=== PATIENT | female | born 1995 | race African-American/Black ===

== ENCOUNTER 2016-09-20 01:31 | Emergency (ER) | payer SELFPAY ==
[~2016-09-20] VITALS: Ht 175.3 cm; Wt 82.7 kg
[~2016-09-20 01:31] MED LIST: AMOXICILLIN 25250 MG PO; AMOXICILLIN 8751 TAB PO; ANTIBIOTIC; ANTIDEPRESSANT; CEFTIN 250250 MG/TAB PO; CLARITIN 1010 MG/TAB PO; DESYREL 50MG50 MG PO; DIFLUCAN150 MG PO; FLAGYL500 MG PO; FLEXERIL 1010 MG/TAB PO; FLONASEALLERGY NS; MOTRIN 800800 MG/TAB PO; NAPROSYN500 MG PO; NORCO 325 MG-51 TAB PO; PYRIDIUM 100MG100 MG PO; UNABLE TO ASSESS; VALTREX1 GM PO; ZOFRAN ODT4 MG PO; ZOLOFT 50MG50 MG PO; ZOVIRAX 200MG200 MG PO; ZYPREXA 5MG5 MG PO; [UNRECOGNIZED DRUG - REMARK]
[2016-09-20 01:36] VITALS: BP 124/79; TEMP 97.5
[2016-09-20 02:52] LABS: BASO % 0.7 % (0.0-2.0); EOS # 0.1 (0.0-0.7); EOS % 2.4 % (0-4.0); GRAN # 3.4 (1.4-6.5); GRAN % 61.3 % (42.2-75.2); HEMATOCRIT 39.7 % (37.0-47.0); HEMOGLOBIN 13.1 g/dl (12.5-16.0); LYMPH # 1.4 (1.2-3.4); LYMPH % 26.1 % (20.0-51.0); MEAN CELL VOLUME 92 fl (80.0-100.0); MEAN CORPUSCULAR HEMOGLOBIN 31 pg (27.0-31.0); MEAN CORPUSCULAR HGB CONC 33 g/dl (33.0-37.0); MEAN PLATELET VOLUME 11.3 fl (7.4-10.4); MONO # 0.5 (0.1-0.6); MONO % 9.3 % (1.7-9.3); PLATELET COUNT 226 K/mm3 (130-400); REDCELL DISTRIBUTION WIDTH-CV 13.2 % (11.5-14.5); WHITE BLOOD COUNT 5.5 K/mm3 (4.8-10.8)
[2016-09-20 03:59] LABS: PH 5 (5-8); URINE APPEARANCE Hazy; URINE BACTERIA None Seen /hpf; URINE BILIRUBIN Positive (NEGATIVE); URINE BLOOD 3+ (NEGATIVE); URINE COLOR Amber; URINE GLUCOSE Negative (NEGATIVE); URINE KETONE Negative (NEGATIVE)
[2016-09-20 04:00] LABS: ADJUSTED CALCIUM 8.6 mg/dL (8.4-10.2); ALANINE AMINOTRANSFERASE 20 U/L (9-52); ALKALINE PHOSPHATASE 47 U/L (50-136); ANION GAP 8 mmol/L (7-16); BILIRUBIN,TOTAL 0.5 mg/dL (0.0-1.0); BLOOD UREA NITROGEN 6 mg/dL (7-17); CALCIUM 8.6 mg/dL (8.4-10.2); CARBON DIOXIDE 28 mmol/L (22-30); CHLORIDE 107 mmol/L (98-107); CREATININE, serum 0.67 mg/dL (0.52-1.25); GLUCOSE 90 mg/dL (74-106); POTASSIUM 4.5 mmol/L (3.4-5.0); SODIUM 143 mmol/L (137-145); TOTAL PROTEIN 7.4 gm/dL (6.4-8.2)
[2016-09-20 04:02] LABS: URINE RBC 20-50 /hpf; URINE WBC 0-2 /hpf
[2016-09-20 04:03] LABS: C-REACTIVE PROTEIN < 0.5 mg/dL (0.0-0.9)
[2016-09-20] MEDS ORDERED: ZOFRAN 4MG T4 MG/TAB PO (04:10)
[2016-09-20 04:24] VITALS: PULSE 77
== END 2016-09-20 04:24 | disposition home or self-care (01) ==
LOC: COL.ER 01:31
PROVIDERS: Emergency Medicine
DX: R11.10 Vomiting, unspecified (principal); R19.7 Diarrhea, unspecified; J06.9 Acute upper respiratory infection, unspecified; B34.9 Viral infection, unspecified; F17.210 Nicotine dependence, cigarettes, uncomplicated
CPT/HCPCS: J2405; J7030

== ENCOUNTER 2016-10-28 18:18 | Emergency (ER) | payer SELFPAY ==
[~2016-10-28] VITALS: Ht 175.3 cm; Wt 83.2 kg
[~2016-10-28 18:18] MED LIST changes: +ZOFRAN 4MG T4 MG/TAB PO
[2016-10-28 18:22] VITALS: TEMP 98.8
[2016-10-28 19:36] LABS: BASO # 0.1 (0.0-0.2); BASO % 0.8 % (0.0-2.0); EOS # 0.1 (0.0-0.7); EOS % 1.4 % (0-4.0); GRAN # 5.4 (1.4-6.5); GRAN % 67.1 % (42.2-75.2); HEMATOCRIT 37.1 % (37.0-47.0); LYMPH % 25.1 % (20.0-51.0); MEAN CELL VOLUME 92 fl (80.0-100.0); MEAN CORPUSCULAR HGB CONC 32 g/dl (33.0-37.0); MEAN PLATELET VOLUME 10.6 fl (7.4-10.4); MONO # 0.4 (0.1-0.6); MONO % 5.3 % (1.7-9.3); PLATELET COUNT 277 K/mm3 (130-400); RED BLOOD COUNT 4.04 M/mm3 (4.10-5.30); REDCELL DISTRIBUTION WIDTH-CV 12.5 % (11.5-14.5)
[2016-10-28 19:41] LABS: PH 5 (5-8); URINE APPEARANCE Hazy; URINE BACTERIA Rare /hpf; URINE BILIRUBIN Negative (NEGATIVE); URINE BLOOD Negative (NEGATIVE); URINE COLOR Yellow; URINE GLUCOSE Negative (NEGATIVE); URINE KETONE Negative (NEGATIVE); URINE RBC 0-2 /hpf; URINE WBC 0-2 /hpf
[2016-10-28 19:47] LABS: ALBUMIN 4.2 gm/dL (3.5-5.0); BILIRUBIN,TOTAL 0.6 mg/dL (0.0-1.0); CALCIUM 9.2 mg/dL (8.4-10.2); CREATININE, serum 0.7 mg/dL (0.52-1.25); POTASSIUM 3.8 mmol/L (3.4-5.0); TOTAL PROTEIN 7.2 gm/dL (6.4-8.2)
[2016-10-28 19:48] LABS: HEMOGLOBIN 11.9 g/dl (12.5-16.0); MEAN CORPUSCULAR HEMOGLOBIN 29 pg (27.0-31.0)
[2016-10-28 20:21] VITALS: BP 100/65; PULSE 80
[2016-10-28] MEDS ORDERED: ZOFRAN8 MG PO (20:22)
== END 2016-10-28 20:35 | disposition home or self-care (01) ==
LOC: COL.ER 18:18
PROVIDERS: Emergency Medicine
DX: R10.11 Right upper quadrant pain (principal); R10.31 Right lower quadrant pain; E86.9 Volume depletion, unspecified; R19.7 Diarrhea, unspecified
CPT/HCPCS: J1885; J2405; J7030

== ENCOUNTER 2016-12-18 04:51 | Emergency (ER) | payer SELFPAY ==
[~2016-12-18] VITALS: Ht 177.8 cm; Wt 82.7 kg
[~2016-12-18 04:51] MED LIST changes: +ZOFRAN8 MG PO
[2016-12-18 04:55] VITALS: BP 106/69; TEMP 98.6
[2016-12-18 05:47] VITALS: PULSE 80
== END 2016-12-18 05:48 | disposition home or self-care (01) ==
LOC: COL.ER 04:51
DX: S61.412A Laceration without foreign body of left hand, initial encounter (principal); F17.210 Nicotine dependence, cigarettes, uncomplicated; W25.XXXA Contact with sharp glass, initial encounter

== ENCOUNTER 2017-03-04 16:51 | Emergency (ER) | payer MEDICAID ==
[~2017-03-04] VITALS: Ht 175.3 cm; Wt 81.8 kg
[2017-03-04 16:54] VITALS: TEMP 98.2
[2017-03-04] MEDS ORDERED: ANTIDEPRESSANT (16:57)
[2017-03-04] MEDS ORDERED: ANXIETY (16:58)
[2017-03-04 17:42] LABS: BASO # 0.1 (0.0-0.2); BASO % 0.5 % (0.0-2.0); EOS % 0.3 % (0-4.0); GRAN % 73.3 % (42.2-75.2); HEMATOCRIT 40.5 % (37.0-47.0); HEMOGLOBIN 13.5 g/dl (12.5-16.0); LYMPH % 21.2 % (20.0-51.0); MEAN CELL VOLUME 93 fl (80.0-100.0); MEAN CORPUSCULAR HEMOGLOBIN 31 pg (27.0-31.0); MEAN CORPUSCULAR HGB CONC 33 g/dl (33.0-37.0); MEAN PLATELET VOLUME 11.2 fl (7.4-10.4); MONO # 0.4 (0.1-0.6); MONO % 4.5 % (1.7-9.3); PLATELET COUNT 228 K/mm3 (130-400); RED BLOOD COUNT 4.38 M/mm3 (4.10-5.30); WHITE BLOOD COUNT 9.5 K/mm3 (4.8-10.8)
[2017-03-04 17:54] LABS: ADJUSTED CALCIUM 9.1 mg/dL (8.4-10.2); ALANINE AMINOTRANSFERASE 16 U/L (9-52); ALBUMIN 4.6 gm/dL (3.5-5.0); ALKALINE PHOSPHATASE 48 U/L (50-136); ANION GAP 10 mmol/L (7-16); BILIRUBIN,TOTAL 0.8 mg/dL (0.0-1.0); BLOOD UREA NITROGEN 7 mg/dL (7-17); CALCIUM 9.6 mg/dL (8.4-10.2); CARBON DIOXIDE 24 mmol/L (22-30); CHLORIDE 105 mmol/L (98-107); CREATININE, serum 0.72 mg/dL (0.52-1.25); GLUCOSE 81 mg/dL (74-106); POTASSIUM 3.9 mmol/L (3.4-5.0); SODIUM 138 mmol/L (137-145)
[2017-03-04 17:59] LABS: ACETAMINOPHEN < 10 ug/mL (10-30); SALICYLATE < 1.0 mg/dL
[2017-03-04 18:10] LABS: AMPHETAMINE URINE NEGATIVE; BARBITURATES URINE NEGATIVE; BENZODIAZEPINES URINE NEGATIVE; BUPRENORPHINE URINE NEGATIVE; METHADONE URINE NEGATIVE; OPIATES URINE NEGATIVE; OXYCODONE URINE NEGATIVE; PHENCYCLIDINE URINE NEGATIVE; PROPOXYPHENE URINE NEGATIVE; THC CANNABINOIDS URINE NEGATIVE
[2017-03-04] MEDS ORDERED: [UNRECOGNIZED DRUG - REMARK] (19:12)
[2017-03-04 20:52] VITALS: BP 107/62; PULSE 78
== END 2017-03-04 20:53 | disposition home or self-care (01) ==
LOC: COL.ER 16:51
PROVIDERS: Emergency Medicine
DX: R45.851 Suicidal ideations (principal); F41.9 Anxiety disorder, unspecified; F32.9 Major depressive disorder, single episode, unspecified; Z91.5 Personal history of self-harm

== ENCOUNTER 2017-03-22 16:03 | Emergency (ER) | payer SELFPAY ==
[~2017-03-22] VITALS: Ht 175.3 cm; Wt 82.7 kg
[~2017-03-22 16:03] MED LIST changes: +ANXIETY; +[UNRECOGNIZED DRUG - REMARK]
[2017-03-22 16:12] VITALS: BP 114/72; TEMP 99.1
[2017-03-22] MEDS ORDERED: ZYPREXA10 MG PO (16:42)
[2017-03-22 17:39] LABS: PH 5 (5-8); URINE APPEARANCE Hazy; URINE BACTERIA None Seen /hpf; URINE BILIRUBIN Negative (NEGATIVE); URINE BLOOD 3+ (NEGATIVE); URINE COLOR Amber; URINE GLUCOSE Negative (NEGATIVE); URINE KETONE Trace (NEGATIVE); URINE WBC 0-2 /hpf
[2017-03-22 18:15] LABS: BASO # 0.1 (0.0-0.2); BASO % 0.9 % (0.0-2.0); EOS # 0.1 (0.0-0.7); EOS % 1.5 % (0-4.0); GRAN # 5.5 (1.4-6.5); GRAN % 67.9 % (42.2-75.2); LYMPH % 24.4 % (20.0-51.0); MEAN CELL VOLUME 93 fl (80.0-100.0); MEAN CORPUSCULAR HGB CONC 33 g/dl (33.0-37.0); MEAN PLATELET VOLUME 10.4 fl (7.4-10.4); MONO # 0.4 (0.1-0.6); MONO % 5.1 % (1.7-9.3); PLATELET COUNT 213 K/mm3 (130-400); RED BLOOD COUNT 3.79 M/mm3 (4.10-5.30); REDCELL DISTRIBUTION WIDTH-CV 13.2 % (11.5-14.5); WHITE BLOOD COUNT 8.1 K/mm3 (4.8-10.8)
[2017-03-22 18:16] LABS: HEMATOCRIT 35.3 % (37.0-47.0); HEMOGLOBIN 11.6 g/dl (12.5-16.0); MEAN CORPUSCULAR HEMOGLOBIN 31 pg (27.0-31.0)
[2017-03-22 18:28] LABS: ADJUSTED CALCIUM 9.1 mg/dL (8.4-10.2); ALANINE AMINOTRANSFERASE 18 U/L (9-52); ALBUMIN 4.4 gm/dL (3.5-5.0); ALKALINE PHOSPHATASE 40 U/L (50-136); ANION GAP 10 mmol/L (7-16); BILIRUBIN,TOTAL 0.7 mg/dL (0.0-1.0); BLOOD UREA NITROGEN 11 mg/dL (7-17); CALCIUM 9.4 mg/dL (8.4-10.2); CARBON DIOXIDE 24 mmol/L (22-30); CHLORIDE 104 mmol/L (98-107); CREATININE, serum 0.65 mg/dL (0.52-1.25); GLUCOSE 75 mg/dL (74-106); POTASSIUM 3.9 mmol/L (3.4-5.0); SODIUM 138 mmol/L (137-145); TOTAL PROTEIN 7.5 gm/dL (6.4-8.2)
[2017-03-22 18:30] LABS: C-REACTIVE PROTEIN < 0.5 mg/dL (0.0-0.9)
[2017-03-22 20:32] LABS: CHLAMYDIA/TRACH by PCR Female NOT DETECTED; NEISSERIA GON by PCR Female NOT DETECTED
[2017-03-22 20:49] VITALS: PULSE 81
== END 2017-03-22 20:50 | disposition home or self-care (01) ==
LOC: COL.ER 16:03
PROVIDERS: Nurse Practitioner
DX: O20.0 Threatened abortion (principal); O26.891 Other specified pregnancy related conditions, first trimester; R10.2 Pelvic and perineal pain; O99.341 Other mental disorders complicating pregnancy, first trimester; F41.9 Anxiety disorder, unspecified; O99.331 Smoking (tobacco) complicating pregnancy, first trimester; F17.210 Nicotine dependence, cigarettes, uncomplicated; Z3A.00 Weeks of gestation of pregnancy not specified

== ENCOUNTER 2017-03-29 13:54 | Emergency (ER) | payer SELFPAY ==
[~2017-03-29] VITALS: Ht 175.3 cm; Wt 83.6 kg
[~2017-03-29 13:54] MED LIST changes: +ZYPREXA10 MG PO
[2017-03-29 16:43] LABS: BASO # 0.1 (0.0-0.2); BASO % 0.9 % (0.0-2.0); EOS # 0.1 (0.0-0.7); EOS % 1.3 % (0-4.0); GRAN # 5.5 (1.4-6.5); GRAN % 71.3 % (42.2-75.2); LYMPH # 1.6 (1.2-3.4); LYMPH % 20.7 % (20.0-51.0); MEAN CELL VOLUME 94 fl (80.0-100.0); MEAN CORPUSCULAR HGB CONC 33 g/dl (33.0-37.0); MEAN PLATELET VOLUME 11.6 fl (7.4-10.4); MONO # 0.4 (0.1-0.6); MONO % 5.7 % (1.7-9.3); PLATELET COUNT 214 K/mm3 (130-400); RED BLOOD COUNT 3.77 M/mm3 (4.10-5.30); REDCELL DISTRIBUTION WIDTH-CV 13.2 % (11.5-14.5); WHITE BLOOD COUNT 7.7 K/mm3 (4.8-10.8)
[2017-03-29 16:53] LABS: HEMATOCRIT 35.5 % (37.0-47.0); HEMOGLOBIN 11.6 g/dl (12.5-16.0); MEAN CORPUSCULAR HEMOGLOBIN 31 pg (27.0-31.0)
[2017-03-29] MEDS ORDERED: NORCO 325 MG-51 TAB PO (18:45)
[2017-03-29 19:14] VITALS: BP 114/66; PULSE 68; TEMP 97
== END 2017-03-29 19:05 | disposition home or self-care (01) ==
LOC: COL.ER 13:54
PROVIDERS: Emergency Medicine
DX: O26.899 Other specified pregnancy related conditions, unspecified trimester (principal); R10.2 Pelvic and perineal pain
CPT/HCPCS: J1170

== ENCOUNTER 2017-05-23 08:11 | Emergency (ER) | payer MEDICAID ==
[~2017-05-23] VITALS: Ht 175.3 cm; Wt 83.2 kg
[2017-05-23 08:20] VITALS: TEMP 97.8
[2017-05-23 09:16] LABS: BASO % 0.6 % (0.0-2.0); EOS # 0.1 (0.0-0.7); EOS % 1.4 % (0-4.0); GRAN # 4.6 (1.4-6.5); GRAN % 65.8 % (42.2-75.2); HEMATOCRIT 37.5 % (37.0-47.0); LYMPH # 1.7 (1.2-3.4); LYMPH % 23.7 % (20.0-51.0); MEAN CELL VOLUME 96 fl (80.0-100.0); MEAN CORPUSCULAR HEMOGLOBIN 31 pg (27.0-31.0); MEAN CORPUSCULAR HGB CONC 32 g/dl (33.0-37.0); MEAN PLATELET VOLUME 10.1 fl (7.4-10.4); MONO # 0.6 (0.1-0.6); MONO % 8.4 % (1.7-9.3); PLATELET COUNT 202 K/mm3 (130-400); RED BLOOD COUNT 3.92 M/mm3 (4.10-5.30)
[2017-05-23 09:21] LABS: STREP SCREEN NEGATIVE
[2017-05-23 09:29] LABS: INFLUENZA A NEGATIVE; INFLUENZA B NEGATIVE
[2017-05-23] MEDS ORDERED: TUSS PO (10:13)
[2017-05-23 11:13] VITALS: BP 119/75; PULSE 88
== END 2017-05-23 10:28 | disposition home or self-care (01) ==
LOC: COL.ER 08:11
PROVIDERS: Nurse Practitioner
DX: B34.9 Viral infection, unspecified (principal); F41.9 Anxiety disorder, unspecified; F32.9 Major depressive disorder, single episode, unspecified; F60.3 Borderline personality disorder; F17.210 Nicotine dependence, cigarettes, uncomplicated

== ENCOUNTER 2017-08-16 09:50 | Emergency (ER) | payer MEDICAID ==
[~2017-08-16] VITALS: Ht 175.3 cm; Wt 83.2 kg
[~2017-08-16 09:50] MED LIST changes: +TUSS PO
[2017-08-16 09:55] VITALS: BP 117/73
[2017-08-16 10:41] LABS: INFLUENZA A NEGATIVE; INFLUENZA B NEGATIVE
[2017-08-16 12:02] VITALS: PULSE 100; TEMP 100.1
== END 2017-08-16 12:00 | disposition home or self-care (01) ==
LOC: COL.ER 09:50
PROVIDERS: Physician Assistant
DX: B34.9 Viral infection, unspecified (principal); G47.9 Sleep disorder, unspecified

== ENCOUNTER 2017-09-12 12:47 | Emergency (ER) | payer MEDICAID ==
[~2017-09-12] VITALS: Ht 175.3 cm; Wt 81.8 kg
[2017-09-12 13:02] VITALS: BP 123/74; TEMP 98.1
[2017-09-12] MEDS ORDERED: DESYREL 50MG50 MG (13:05)
[2017-09-12] MEDS ORDERED: PROZAC 10MG10 MG (13:05)
[2017-09-12] MEDS ORDERED: ZYPREXA20 MG PO (13:06)
[2017-09-12 15:17] VITALS: PULSE 72
== END 2017-09-12 15:18 | disposition home or self-care (01) ==
LOC: COL.ER 12:47
DX: G43.909 Migraine, unspecified, not intractable, without status migrainosus (principal)
CPT/HCPCS: J1200; J1885

== ENCOUNTER 2017-09-27 20:13 | Emergency (ER) | payer MEDICAID ==
[~2017-09-27] VITALS: Ht 175.3 cm; Wt 81.8 kg
[~2017-09-27 20:13] MED LIST changes: +DESYREL 50MG50 MG; +PROZAC 10MG10 MG; +ZYPREXA20 MG PO
[2017-09-27 20:21] VITALS: BP 114/67; TEMP 98.6
[2017-09-27] MEDS ORDERED: DOXYCYCLINE 10100 MG PO (21:39)
[2017-09-27] MEDS ORDERED: NORCO 325 MG-51 TAB PO (21:39)
[2017-09-27 22:02] VITALS: PULSE 75
== END 2017-09-27 22:00 | disposition home or self-care (01) ==
LOC: COL.ER 20:13
DX: L02.91 Cutaneous abscess, unspecified (principal); F41.9 Anxiety disorder, unspecified; F31.9 Bipolar disorder, unspecified; G47.00 Insomnia, unspecified; F17.210 Nicotine dependence, cigarettes, uncomplicated

== ENCOUNTER 2017-11-07 17:39 | Emergency (ER) | payer MEDICAID ==
[~2017-11-07] VITALS: Ht 175.3 cm; Wt 81.8 kg
[~2017-11-07 17:39] MED LIST changes: +DOXYCYCLINE 10100 MG PO
[2017-11-07 18:14] VITALS: BP 124/71; TEMP 97.9
[2017-11-07 18:21] LABS: COLLECTION METHOD CLEAN CATCH
[2017-11-07 18:28] LABS: MUCOUS Present /lpf; PH 5 (5-8); URINE APPEARANCE Cloudy; URINE BACTERIA Rare /hpf; URINE BILIRUBIN Negative (NEGATIVE); URINE BLOOD 1+ (NEGATIVE); URINE COLOR Yellow; URINE GLUCOSE Negative (NEGATIVE); URINE KETONE Negative (NEGATIVE); URINE LEUKOCYTE ESTERASE 3+ (NEGATIVE); URINE NITRATE Negative (NEGATIVE); URINE PROTEIN(semi-quant) 1+ (NEGATIVE); URINE RBC >50 /hpf; URINE UROBILINOGEN >=4.0 mg/dL (NEGATIVE)
[2017-11-07] MEDS ORDERED: FLAGYL500 MG PO (19:21)
[2017-11-07] MEDS ORDERED: MACROBID 1100 MG/CAP PO (19:21)
[2017-11-07] MEDS ORDERED: ZITHROMAX500 M2 PO (19:22)
[2017-11-07 19:31] VITALS: PULSE 86
== END 2017-11-07 19:36 | disposition home or self-care (01) ==
LOC: COL.ER 17:39
PROVIDERS: Physician Assistant
DX: A59.01 Trichomonal vulvovaginitis (principal); N30.90 Cystitis, unspecified without hematuria; F17.210 Nicotine dependence, cigarettes, uncomplicated; Z87.59 Personal history of other complications of pregnancy, childbirth and the puerperium

== ENCOUNTER 2018-01-10 11:52 | Emergency (ER) | payer MEDICAID ==
[~2018-01-10] VITALS: Ht 175.3 cm; Wt 79.5 kg
[~2018-01-10 11:52] MED LIST changes: +MACROBID 1100 MG/CAP PO; +PREDNISONE10 MG PO; +ZITHROMAX500 M2 PO
[2018-01-10 12:07] VITALS: BP 156/67; PULSE 102; TEMP 100.1
[2018-01-10] MEDS ORDERED: AMOXICILLIN 50500 MG PO (12:18)
== END 2018-01-10 12:44 | disposition home or self-care (01) ==
LOC: COL.ER 11:52
DX: J02.0 Streptococcal pharyngitis (principal)
CPT/HCPCS: J1100

== ENCOUNTER 2018-02-06 16:30 | Emergency (ER) | payer SELFPAY ==
[~2018-02-06] VITALS: Ht 175.3 cm; Wt 82.7 kg
[~2018-02-06 16:30] MED LIST changes: +AMOXICILLIN 50500 MG PO
[2018-02-06 16:34] VITALS: BP 117/76; TEMP 99.4
[2018-02-06 18:05] VITALS: PULSE 82
== END 2018-02-06 18:05 | disposition home or self-care (01) ==
LOC: COL.ER 16:30
DX: N91.0 Primary amenorrhea (principal); F32.9 Major depressive disorder, single episode, unspecified; F41.9 Anxiety disorder, unspecified; F17.210 Nicotine dependence, cigarettes, uncomplicated; F60.3 Borderline personality disorder

== ENCOUNTER 2018-06-17 04:01 | Emergency (ER) | payer SELFPAY ==
[~2018-06-17] VITALS: Ht 175.3 cm; Wt 81.8 kg
[2018-06-17 04:04] VITALS: BP 110/73; TEMP 98.1
[2018-06-17] MEDS ORDERED: NORCO 325 MG-51 TAB PO (04:19)
[2018-06-17] MEDS ORDERED: FLEXERIL 1010 MG/TAB PO (04:19)
[2018-06-17 05:02] VITALS: PULSE 74
== END 2018-06-17 05:02 | disposition home or self-care (01) ==
LOC: COL.ER 04:01
DX: M43.6 Torticollis (principal); F32.9 Major depressive disorder, single episode, unspecified; F41.9 Anxiety disorder, unspecified
CPT/HCPCS: J1885; J2360

== ENCOUNTER 2018-07-02 14:47 | Emergency (ER) | payer SELFPAY ==
[~2018-07-02] VITALS: Ht 175.3 cm; Wt 81.8 kg
[2018-07-02 14:52] VITALS: BP 119/73; TEMP 98.9
[2018-07-02] MEDS ORDERED: TRIAMCINOLONE A15 G3 TP (15:20)
[2018-07-02 15:33] VITALS: PULSE 96
== END 2018-07-02 15:37 | disposition home or self-care (01) ==
LOC: COL.ER 14:47
DX: R21 Rash and other nonspecific skin eruption (principal); F32.9 Major depressive disorder, single episode, unspecified; F17.210 Nicotine dependence, cigarettes, uncomplicated; F12.90 Cannabis use, unspecified, uncomplicated; F41.9 Anxiety disorder, unspecified; F60.3 Borderline personality disorder

== ENCOUNTER 2018-08-21 10:01 | Emergency (ER) | payer SELFPAY ==
[~2018-08-21] VITALS: Ht 175.3 cm; Wt 81.8 kg
[~2018-08-21 10:01] MED LIST changes: -PROZAC 10MG10 MG; +PROZAC 10MG10 MG PO; +TRIAMCINOLONE A15 G3 TP
[2018-08-21 10:06] VITALS: BP 124/79
[2018-08-21] MEDS ORDERED: ZYPREXA 5MG5 MG PO (10:13)
[2018-08-21 10:53] LABS: BASO % 0.6 % (0.0-2.0); EOS # 0.1 (0.0-0.7); EOS % 1.5 % (0-4.0); GRAN # 3.6 (1.4-6.5); GRAN % 69.4 % (42.2-75.2); HEMATOCRIT 37.3 % (37.0-47.0); HEMOGLOBIN 11.9 g/dl (12.5-16.0); LYMPH % 19.6 % (20.0-51.0); MEAN CELL VOLUME 95 fl (80.0-100.0); MEAN CORPUSCULAR HEMOGLOBIN 30 pg (27.0-31.0); MEAN CORPUSCULAR HGB CONC 32 g/dl (33.0-37.0); MEAN PLATELET VOLUME 10.8 fl (7.4-10.4); MONO # 0.5 (0.1-0.6); MONO % 8.7 % (1.7-9.3); PLATELET COUNT 232 K/mm3 (130-400); RED BLOOD COUNT 3.93 M/mm3 (4.10-5.30); REDCELL DISTRIBUTION WIDTH-CV 13.2 % (11.5-14.5)
[2018-08-21 11:05] LABS: ALANINE AMINOTRANSFERASE 15 U/L (9-52); ALBUMIN 3.9 gm/dL (3.5-5.0); ALKALINE PHOSPHATASE 48 U/L (50-136); ANION GAP 7 mmol/L (7-16); AST,SGOT 14 U/L (15-37); BILIRUBIN,TOTAL 0.2 mg/dL (0.0-1.0); BLOOD UREA NITROGEN 12 mg/dL (7-17); CALCIUM 9.1 mg/dL (8.4-10.2); CARBON DIOXIDE 28 mmol/L (22-30); CHLORIDE 107 mmol/L (98-107); GLUCOSE 89 mg/dL (74-106); POTASSIUM 3.7 mmol/L (3.4-5.0); SODIUM 141 mmol/L (137-145); TOTAL PROTEIN 7.2 gm/dL (6.4-8.2)
[2018-08-21 11:09] LABS: ACETAMINOPHEN < 10 ug/mL (10-30); ALCOHOL(ethanol),MEDICAL < 10 mg/dL; SALICYLATE < 1.0 mg/dL
[2018-08-21 11:14] LABS: COLLECTION METHOD CLEAN CATCH
[2018-08-21 11:22] LABS: MUCOUS Present /lpf; PH 5 (5-8); URINE APPEARANCE Hazy; URINE BACTERIA Rare /hpf; URINE BILIRUBIN Negative (NEGATIVE); URINE BLOOD 3+ (NEGATIVE); URINE COLOR Yellow; URINE GLUCOSE Negative (NEGATIVE); URINE KETONE Negative (NEGATIVE); URINE LEUKOCYTE ESTERASE Negative (NEGATIVE); URINE NITRATE Negative (NEGATIVE); URINE PROTEIN(semi-quant) Negative (NEGATIVE); URINE RBC 20-50 /hpf
[2018-08-21 11:25] LABS: TRICYCLIC ANTIDEPRESS URINE NEGATIVE
[2018-08-21 12:18] VITALS: PULSE 96; TEMP 98
== END 2018-08-21 12:18 | disposition home or self-care (01) ==
LOC: COL.ER 10:01
PROVIDERS: Physician Assistant
DX: F32.9 Major depressive disorder, single episode, unspecified (principal); N93.8 Other specified abnormal uterine and vaginal bleeding; F17.210 Nicotine dependence, cigarettes, uncomplicated
CPT/HCPCS: J0696

== ENCOUNTER 2018-09-02 21:28 | Emergency (ER) | payer SELFPAY ==
[~2018-09-02] VITALS: Ht 175.3 cm; Wt 78.6 kg
[2018-09-02 21:31] VITALS: TEMP 97.4
[2018-09-02 23:36] VITALS: BP 106/69; PULSE 88
== END 2018-09-02 23:37 | disposition home or self-care (01) ==
LOC: COL.ER 21:28
DX: T78.40XA Allergy, unspecified, initial encounter (principal)
CPT/HCPCS: J1200; J2930

== ENCOUNTER 2018-11-13 12:48 | Emergency (ER) | payer SELFPAY ==
[~2018-11-13] VITALS: Ht 152.4 cm; Wt 81.8 kg
[2018-11-13 12:50] VITALS: TEMP 99.4
[2018-11-13 14:59] LABS: COLLECTION METHOD CLEAN CATCH
[2018-11-13 15:06] LABS: MUCOUS Present /lpf; PH 6 (5-8); URINE APPEARANCE Clear; URINE BACTERIA None Seen /hpf; URINE BILIRUBIN Negative (NEGATIVE); URINE BLOOD 1+ (NEGATIVE); URINE COLOR Yellow; URINE GLUCOSE Negative (NEGATIVE); URINE KETONE Negative (NEGATIVE); URINE LEUKOCYTE ESTERASE Negative (NEGATIVE); URINE NITRATE Negative (NEGATIVE); URINE PROTEIN(semi-quant) Negative (NEGATIVE); URINE RBC 0-2 /hpf; URINE UROBILINOGEN Negative (NEGATIVE)
[2018-11-13 15:23] VITALS: BP 124/76; PULSE 69
== END 2018-11-13 15:24 | disposition home or self-care (01) ==
LOC: COL.ER 12:48
PROVIDERS: Nurse Practitioner Primary Care
DX: R10.30 Lower abdominal pain, unspecified (principal); F41.9 Anxiety disorder, unspecified; F32.9 Major depressive disorder, single episode, unspecified; G47.00 Insomnia, unspecified; F60.3 Borderline personality disorder

== ENCOUNTER 2020-03-31 01:56 | Emergency (ER) | payer MEDICAID ==
[2020-03-31 02:22] VITALS: TEMP 98.9
[2020-03-31 03:04] LABS: COLLECTION METHOD CLEAN CATCH
[2020-03-31 03:09] LABS: PH 7 (5-8); SQUAMOUS EPITHELIAL 0-2 /hpf; URINE APPEARANCE Clear; URINE BACTERIA Rare /hpf; URINE BILIRUBIN Negative (NEGATIVE); URINE BLOOD 1+ (NEGATIVE); URINE COLOR Straw; URINE GLUCOSE Negative (NEGATIVE); URINE KETONE Negative (NEGATIVE); URINE LEUKOCYTE ESTERASE Negative (NEGATIVE); URINE NITRATE Negative (NEGATIVE); URINE PROTEIN(semi-quant) Negative (NEGATIVE); URINE RBC 0-2 /hpf; URINE UROBILINOGEN Negative (NEGATIVE)
[2020-03-31 03:40] VITALS: BP 121/73; PULSE 85
== END 2020-03-31 03:40 | disposition home or self-care (01) ==
LOC: COL.ER 01:56
PROVIDERS: Physician Assistant
DX: O26.891 Other specified pregnancy related conditions, first trimester (principal); Z3A.13 13 weeks gestation of pregnancy

== ENCOUNTER 2020-05-27 08:37 | Emergency (ER) | payer MEDICAID ==
[~2020-05-27] VITALS: Ht 175.3 cm; Wt 97.7 kg
[2020-05-27 08:48] VITALS: TEMP 98.3
[2020-05-27 10:02] LABS: BASO # 0.1 (0.0-0.2); BASO % 0.4 % (0.0-2.0); EOS # 0.3 (0.0-0.7); EOS % 2.1 % (0-4.0); GRAN # 9.3 (1.4-6.5); GRAN % 79.6 % (42.2-75.2); HEMOGLOBIN 10.7 g/dl (12.5-16.0); LYMPH # 1.4 (1.2-3.4); MEAN CELL VOLUME 93 fl (80.0-100.0); MEAN CORPUSCULAR HEMOGLOBIN 31 pg (27.0-31.0); MEAN CORPUSCULAR HGB CONC 33 g/dl (33.0-37.0); MEAN PLATELET VOLUME 10.8 fl (7.4-10.4); MONO # 0.7 (0.1-0.6); MONO % 5.5 % (1.7-9.3); PLATELET COUNT 256 K/mm3 (130-400); RED BLOOD COUNT 3.49 M/mm3 (4.10-5.30); REDCELL DISTRIBUTION WIDTH-CV 13.6 % (11.5-14.5)
[2020-05-27 10:03] LABS: HEMATOCRIT 32.5 % (37.0-47.0)
[2020-05-27 10:18] LABS: ALBUMIN 3.4 gm/dL (3.5-5.0); BILIRUBIN,TOTAL 0.2 mg/dL (0.0-1.0); CALCIUM 8.5 mg/dL (8.4-10.2); CREATININE, serum 0.47 (0.52-1.25); POTASSIUM 3.9 mmol/L (3.4-5.0); TOTAL PROTEIN 6.5 gm/dL (6.4-8.2)
[2020-05-27 10:24] LABS: COLLECTION METHOD CLEAN CATCH
[2020-05-27 10:39] LABS: MUCOUS Present /lpf; PH 7 (5-8); URINE APPEARANCE Hazy; URINE BACTERIA Occasional /hpf; URINE BILIRUBIN Negative (NEGATIVE); URINE BLOOD Negative (NEGATIVE); URINE COLOR Yellow; URINE GLUCOSE Negative (NEGATIVE); URINE KETONE Negative (NEGATIVE); URINE LEUKOCYTE ESTERASE Negative (NEGATIVE); URINE NITRATE Negative (NEGATIVE); URINE PROTEIN(semi-quant) 1+ (NEGATIVE)
[2020-05-27 11:08] VITALS: BP 113/67; PULSE 88
== END 2020-05-27 11:08 | disposition home or self-care (01) ==
LOC: COL.ER 08:37
PROVIDERS: Physician Assistant
DX: O21.9 Vomiting of pregnancy, unspecified (principal); F17.210 Nicotine dependence, cigarettes, uncomplicated; Z3A.21 21 weeks gestation of pregnancy
CPT/HCPCS: J2405; J7030

== ENCOUNTER 2020-07-22 00:32 | Emergency (ER) | payer MEDICAID ==
[~2020-07-22] VITALS: Ht 175.3 cm; Wt 100.5 kg
[2020-07-22 01:10] LABS: COLLECTION METHOD CLEAN CATCH
[2020-07-22 01:16] LABS: MUCOUS Present /lpf; PH 5 (5-8); URINE APPEARANCE Hazy; URINE BACTERIA None Seen /hpf; URINE BILIRUBIN Negative (NEGATIVE); URINE BLOOD Negative (NEGATIVE); URINE COLOR Yellow; URINE GLUCOSE Negative (NEGATIVE); URINE KETONE Negative (NEGATIVE); URINE LEUKOCYTE ESTERASE Negative (NEGATIVE); URINE NITRATE Negative (NEGATIVE); URINE PROTEIN(semi-quant) Negative (NEGATIVE); URINE RBC 0-2 /hpf
[2020-07-22 01:29] LABS: ALBUMIN 3.5 gm/dL (3.5-5.0); BILIRUBIN,TOTAL 0.2 mg/dL (0.0-1.0); CALCIUM 8.7 mg/dL (8.4-10.2); CREATININE, serum 0.47 (0.52-1.25); POTASSIUM 4.1 mmol/L (3.4-5.0); TOTAL PROTEIN 6.7 gm/dL (6.4-8.2)
[2020-07-22 01:47] LABS: BASO # 0.1 (0.0-0.2); BASO % 0.5 % (0.0-2.0); EOS # 0.3 (0.0-0.7); EOS % 2.1 % (0-4.0); GRAN # 12.3 (1.4-6.5); GRAN % 75.8 % (42.2-75.2); HEMOGLOBIN 10.2 g/dl (12.5-16.0); LYMPH # 2.5 (1.2-3.4); LYMPH % 15.3 % (20.0-51.0); MEAN CELL VOLUME 90 fl (80.0-100.0); MEAN CORPUSCULAR HEMOGLOBIN 30 pg (27.0-31.0); MEAN CORPUSCULAR HGB CONC 33 g/dl (33.0-37.0); MEAN PLATELET VOLUME 10.3 fl (7.4-10.4); MONO # 0.9 (0.1-0.6); MONO % 5.7 % (1.7-9.3); PLATELET COUNT 305 K/mm3 (130-400); RED BLOOD COUNT 3.46 M/mm3 (4.10-5.30); REDCELL DISTRIBUTION WIDTH-CV 13.1 % (11.5-14.5)
[2020-07-22 01:52] LABS: HEMATOCRIT 31.2 % (37.0-47.0)
[2020-07-22] MEDS ORDERED: ZOFRAN ODT4 MG PO (02:15)
[2020-07-22] MEDS ORDERED: NEXIUM 40MG40 MG PO (02:15)
[2020-07-22 03:00] VITALS: BP 129/60; PULSE 80
== END 2020-07-22 02:30 | disposition home or self-care (01) ==
LOC: COL.ER 00:32
PROVIDERS: Emergency Medicine
DX: O99.612 Diseases of the digestive system complicating pregnancy, second trimester (principal); K21.9 Gastro-esophageal reflux disease without esophagitis; Z3A.26 26 weeks gestation of pregnancy

== ENCOUNTER → 2020-09-28 | Outpatient (CLI) | payer MEDICAID ==
[~2020-09-28] VITALS: Ht 152.4 cm; Wt 104.5 kg
[~2020-09-28] MED LIST changes: +IBU600 MG PO; +NEXIUM 40MG40 MG PO; +PERCOCET 325 MG1 TA2 PO; +PRENATAL TABLET PO
--- NOTE | 2020-09-28 13:10 | NUR ---
Presents to labor and delivery. States having contractions. heart monitor on. Vag check done, dilated to one. Assessment done, questions offered and answered.
[2020-09-28 14:00] VITALS: BP 130/56; PULSE 96
[2020-09-28 14:30] VITALS: BP 124/68; PULSE 99
== END ==
LOC: LDRO 08:36
DX: O46.93 Antepartum hemorrhage, unspecified, third trimester (principal); Z3A.39 39 weeks gestation of pregnancy

== ENCOUNTER 2020-09-29 05:38 | Inpatient (IN) | payer MEDICAID ==
[2020-09-29] VITALS (17 sets, daily range): BP systolic 100–142; BP diastolic 51–88; PULSE 76–99; TEMP 97.6–99
[~2020-09-29] VITALS: Ht 175.3 cm; Wt 104.5 kg
[~2020-09-29 05:38] MED LIST changes: -IBU600 MG PO; -PERCOCET 325 MG1 TA2 PO
[2020-09-29 07:07] LABS: BASO # 0.1 (0.0-0.2); BASO % 0.4 % (0.0-2.0); EOS # 0.1 (0.0-0.7); EOS % 0.4 % (0-4.0); GRAN # 15.5 (1.4-6.5); GRAN % 84.2 % (42.2-75.2); LYMPH # 1.7 (1.2-3.4); MEAN CELL VOLUME 83 fl (80.0-100.0); MEAN CORPUSCULAR HEMOGLOBIN 26 pg (27.0-31.0); MEAN CORPUSCULAR HGB CONC 32 g/dl (33.0-37.0); MEAN PLATELET VOLUME 10.5 fl (7.4-10.4); MONO % 5.3 % (1.7-9.3); PLATELET COUNT 336 K/mm3 (130-400); RED BLOOD COUNT 3.83 M/mm3 (4.10-5.30); REDCELL DISTRIBUTION WIDTH-CV 14.5 % (11.5-14.5)
[2020-09-29 07:09] LABS: HEMATOCRIT 31.7 % (37.0-47.0)
[2020-09-29 07:19] LABS: TRICYCLIC ANTIDEPRESS URINE NEGATIVE
[2020-09-30 00:35] VITALS: BP 118/71; PULSE 93; TEMP 98
[2020-09-30 05:08] VITALS: BP 99/50; PULSE 89; TEMP 97.6
[2020-09-30 08:02] VITALS: BP 110/58; PULSE 89; TEMP 97.7
[2020-09-30 16:19] VITALS: BP 96/61; PULSE 93; TEMP 97.9
[2020-09-30 20:15] VITALS: BP 110/71; PULSE 90; TEMP 98.3
[2020-10-01 02:40] VITALS: BP 112/70; PULSE 71; TEMP 98.1
[2020-10-01 07:56] VITALS: BP 103/54; PULSE 79; TEMP 97.2
[2020-10-01] MEDS ORDERED: PERCOCET 325 MG1 TA2 PO (09:44)
[2020-10-01] MEDS ORDERED: IBU600 MG PO (09:44)
[2020-10-01 16:05] VITALS: BP 109/55; PULSE 92; TEMP 97.9
[2020-10-01 21:10] VITALS: BP 95/44; PULSE 91; TEMP 98.3
[2020-10-02 07:15] VITALS: BP 119/64; PULSE 85; TEMP 97.8
== END 2020-10-02 18:05 | disposition home or self-care (01) | DRG 806 ==
LOC: LDRO 05:38 → OB 06:09 → LDR 06:09 → OB 17:00
PROVIDERS: ADMIT Student in an Organized Health Care Education/Training Program
PROC: 10E0XZZ Delivery of Products of Conception, External Approach (ICD-10-PCS; principal; 2020-09-29)
PROC: 0HQ9XZZ Repair Perineum Skin, External Approach (ICD-10-PCS; 2020-09-29)
PROC: 0UQMXZZ Repair Vulva, External Approach (ICD-10-PCS; 2020-09-29)
DX: O99.02 Anemia complicating childbirth (principal); O99.324 Drug use complicating childbirth; Z37.0 Single live birth; O99.354 Diseases of the nervous system complicating childbirth; O72.1 Other immediate postpartum hemorrhage; G57.22 Lesion of femoral nerve, left lower limb; D64.9 Anemia, unspecified; O99.344 Other mental disorders complicating childbirth; F60.3 Borderline personality disorder; F12.90 Cannabis use, unspecified, uncomplicated; O69.81X0 Labor and delivery complicated by cord around neck, without compression, not applicable or unspecified; O70.0 First degree perineal laceration during delivery; Z3A.39 39 weeks gestation of pregnancy
CPT/HCPCS: J2210; J2590; J2795; J7120

== ENCOUNTER → 2020-10-02 | Outpatient (CLI) | payer MEDICAID ==
[~2020-10-02] MED LIST changes: +IBU600 MG PO; +PERCOCET 325 MG1 TA2 PO
== END ==
LOC: ZCOL.LAB
DX: Z20.822 Contact with and (suspected) exposure to COVID-19 (principal)

== ENCOUNTER → 2021-05-13 | Outpatient (CLI) | payer MEDICAID | LOC: COL.RAD 06:54 | DX: M62.81 Muscle weakness (generalized) (principal) ==

== ENCOUNTER 2021-08-02 09:43 | Emergency (ER) | payer MEDICAID ==
[~2021-08-02] VITALS: Ht 175.3 cm; Wt 115.0 kg
[2021-08-02 12:40] VITALS: BP 110/80; PULSE 90; TEMP 98.8
== END 2021-08-02 12:40 | disposition home or self-care (01) ==
LOC: COL.ER 09:43
DX: U07.1 COVID-19 (principal)

== ENCOUNTER 2022-01-21 09:35 | Emergency (ER) | payer MEDICAID ==
[~2022-01-21] VITALS: Ht 175.3 cm; Wt 100.0 kg
[2022-01-21 10:13] VITALS: TEMP 97.4
[2022-01-21] MEDS ORDERED: FLEXERIL 1010 MG/TAB PO (10:48)
[2022-01-21] MEDS ORDERED: MEDROL 4MG DOSPA4 MG PO (10:49)
[2022-01-21 11:12] VITALS: BP 126/87; PULSE 86
== END 2022-01-21 11:12 | disposition home or self-care (01) ==
LOC: COL.ER 09:35
DX: M54.9 Dorsalgia, unspecified (principal); M54.50 Low back pain, unspecified; F17.210 Nicotine dependence, cigarettes, uncomplicated; Z28.310 Unvaccinated for COVID-19
CPT/HCPCS: J1885

== ENCOUNTER → 2022-03-31 | Outpatient (CLI) | payer MEDICAID ==
[~2022-03-31] MED LIST changes: +MEDROL 4MG DOSPA4 MG PO
== END ==
LOC: COL.RAD 07:30
DX: R20.2 Paresthesia of skin (principal); M54.6 Pain in thoracic spine
CPT/HCPCS: A9575

== ENCOUNTER → 2022-08-26 | Outpatient (CLI) | payer MEDICAID | LOC: MHCPAIN 14:41 | DX: M79.2 Neuralgia and neuritis, unspecified (principal); M53.3 Sacrococcygeal disorders, not elsewhere classified; R10.2 Pelvic and perineal pain | CPT/HCPCS: G0463 ==

== ENCOUNTER → 2022-08-31 | Outpatient (CLI) | payer MEDICAID | LOC: MHCPAIN 15:30 | DX: M53.3 Sacrococcygeal disorders, not elsewhere classified (principal); M54.50 Low back pain, unspecified; M79.2 Neuralgia and neuritis, unspecified; R10.2 Pelvic and perineal pain | CPT/HCPCS: J1100; Q9967 ==

== ENCOUNTER → 2022-09-22 | Outpatient (CLI) | payer MEDICAID | LOC: MHCPAIN 10:31 | DX: M79.18 Myalgia, other site (principal); M54.32 Sciatica, left side; R10.2 Pelvic and perineal pain | CPT/HCPCS: G0463 ==

== ENCOUNTER → 2022-10-14 | Outpatient (CLI) | payer MEDICAID | LOC: MHCPAIN 13:27 | DX: M79.2 Neuralgia and neuritis, unspecified (principal); R10.2 Pelvic and perineal pain; M54.32 Sciatica, left side | CPT/HCPCS: G0463 ==

== ENCOUNTER 2022-10-16 07:26 | Emergency (ER) | payer MEDICAID ==
[~2022-10-16] VITALS: Ht 175.3 cm; Wt 104.5 kg
[2022-10-16 08:49] VITALS: BP 108/76; PULSE 84; TEMP 98
== END 2022-10-16 08:49 | disposition home or self-care (01) ==
LOC: COL.ER 07:26
DX: J20.9 Acute bronchitis, unspecified (principal); R55 Syncope and collapse; Z20.822 Contact with and (suspected) exposure to COVID-19; Z28.310 Unvaccinated for COVID-19; W18.30XA Fall on same level, unspecified, initial encounter; W22.8XXA Striking against or struck by other objects, initial encounter

== ENCOUNTER → 2023-04-12 | Outpatient (CLI) | payer MEDICAID | LOC: MHCPAIN 10:24 | DX: M79.2 Neuralgia and neuritis, unspecified (principal); M79.605 Pain in left leg; R10.2 Pelvic and perineal pain; M54.6 Pain in thoracic spine; M54.50 Low back pain, unspecified; R60.0 Localized edema | CPT/HCPCS: G0463 ==

== ENCOUNTER → 2023-10-12 | Outpatient (CLI) | payer MEDICAID | LOC: MHCPAIN 14:00 | DX: M79.2 Neuralgia and neuritis, unspecified (principal); R10.2 Pelvic and perineal pain; M54.50 Low back pain, unspecified; R60.0 Localized edema | CPT/HCPCS: G0463 ==

== ENCOUNTER → 2024-01-04 | Outpatient (CLI) | payer MEDICAID | LOC: MHCPAIN 13:58 | DX: M79.2 Neuralgia and neuritis, unspecified (principal); M54.50 Low back pain, unspecified; R10.2 Pelvic and perineal pain | CPT/HCPCS: G0463 ==

== ENCOUNTER → 2024-02-01 | Outpatient (CLI) | payer MEDICAID | LOC: MHCPAIN 15:03 | DX: M54.50 Low back pain, unspecified (principal); R10.2 Pelvic and perineal pain; M79.2 Neuralgia and neuritis, unspecified | CPT/HCPCS: G0463 ==

== ENCOUNTER 2024-02-10 19:40 | Emergency (ER) | payer MEDICAID ==
[~2024-02-10] VITALS: Ht 175.3 cm; Wt 105.5 kg
[2024-02-10 20:44] VITALS: BP 142/91; PULSE 87; TEMP 98.2
== END 2024-02-10 20:44 | disposition home or self-care (01) ==
LOC: COL.ER 19:40
DX: S29.012A Strain of muscle and tendon of back wall of thorax, initial encounter (principal); Z87.891 Personal history of nicotine dependence; X58.XXXA Exposure to other specified factors, initial encounter

== ENCOUNTER → 2024-03-14 | Outpatient (CLI) | payer MEDICAID | LOC: MHCPAIN 09:14 | DX: M54.16 Radiculopathy, lumbar region (principal); M79.10 Myalgia, unspecified site; F32.A Depression, unspecified; F41.9 Anxiety disorder, unspecified | CPT/HCPCS: G0463 ==

== ENCOUNTER → 2024-04-04 | Outpatient (CLI) | payer MEDICAID | LOC: MHCPAIN 09:06 | DX: M79.605 Pain in left leg (principal); G90.522 Complex regional pain syndrome I of left lower limb | CPT/HCPCS: G0463 ==

== ENCOUNTER → 2024-04-06 | Outpatient (CLI) | payer MEDICAID | LOC: MHCPAIN 14:59 | DX: M79.2 Neuralgia and neuritis, unspecified (principal); R10.2 Pelvic and perineal pain; M54.50 Low back pain, unspecified | CPT/HCPCS: G0463 ==